=== PATIENT | male | born 1960 | race African-American/Black ===

== ENCOUNTER 2017-03-09 23:53 | Emergency (ER) | payer MEDICAID ==
[~2017-03-09] VITALS: Ht 170.2 cm; Wt 63.5 kg
[2017-03-10 00:56] LABS: Urine Bilirubin Negative (Negative); Urine Blood Negative /uL (Negative); Urine Color Yellow (Yellow); Urine Glucose Normal (Normal); Urine Ketone Negative (Negative); Urine Nitrite Negative (Negative); Urine RBC <1 /hpf (0 - 3); Urine Urobilinogen Normal (Negative)
[2017-03-10 00:59] LABS: Basophils # (auto) 0.1 uL; Basophils % (auto) 0.7 % (0.0-2.0); Eosinophils # (auto) 0 uL; Eosinophils % (auto) 0.1 % (0.0-7.0); Hematocrit 40.5 % (41.0-53.0); Hemoglobin 13.5 g/dL (13.5-17.5); Lymphocytes # (auto) 1.2 uL; Lymphocytes % (auto) 13.9 % (10.0-50.0); Mean Corpuscular Hgb Conc. 33.3 g/dL (32.0-36.0); Mean Corpuscular Volume 87.2 fL (80.0-100.0); Mean Platelet Volume 9.3 fL (6.9-10.8); Monocytes # (auto) 0.4 uL; Neutrophils # (auto) 7.1 uL; Neutrophils % (auto) 80.3 % (37.0-80.0); Nucleated Red Blood Cells % 0.1 %; Platelet Count (auto) 177 10^3/uL (140-450); Red Cell Distribution Width 13.3 % (11.8-14.3); White Blood Cell 8.9 10^3/uL (4.4-10.8)
[2017-03-10 01:25] LABS: Albumin 3.8 g/dL (3.4-5.0); BUN/Creatinine Ratio 18.5; Calcium 9.1 mg/dL (8.5-10.1); Magnesium 2.1 mg/dL (1.6-2.6); Potassium 3.1 mmol/L (3.5-5.1)
[2017-03-10 01:29] LABS: B-Type Natriuretic Peptide 78.3 pg/mL (0-100); Temperature: 21.5 C (20.0-25.0)
[2017-03-10 01:30] LABS: Bilirubin, Total 0.3 mg/dL (0.2-1.0); Total Protein 7.3 g/dL (6.4-8.2)
[2017-03-10 02:05] VITALS: BP 169/92
[2017-03-10] MEDS: cloNIDine HCL 0.1 MG TAB PO ONE (02:26)
== END 2017-03-10 04:18 | disposition left against medical advice (07) ==
LOC: ER 03-10 00:01
DX: I44.7 Left bundle-branch block, unspecified (principal); R79.89 Other specified abnormal findings of blood chemistry; R06.02 Shortness of breath
CPT/HCPCS: 36415; 71010; 80053; 80307; 81001; 83735; 83880; 84484; 85025; 93005

== ENCOUNTER 2018-08-17 16:50 | Emergency (ER) | payer MEDICAID, OTHER ==
[~2018-08-17] VITALS: Ht 170.2 cm; Wt 63.5 kg
[2018-08-17 17:00] VITALS: BP 160/87
== END 2018-08-17 18:37 | disposition left against medical advice (07) ==
LOC: ER 16:55
DX: S71.152A Open bite, left thigh, initial encounter (principal); Z53.21 Procedure and treatment not carried out due to patient leaving prior to being seen by health care provider; W54.0XXA Bitten by dog, initial encounter; Y93.9 Activity, unspecified; Y92.89 Other specified places as the place of occurrence of the external cause; Y99.8 Other external cause status

== ENCOUNTER 2018-08-18 11:12 | Emergency (ER) | payer MEDICAID ==
[~2018-08-18] VITALS: Ht 170.2 cm; Wt 63.5 kg
[2018-08-18 14:04] VITALS: BP 148/100
[2018-08-18] MEDS ORDERED: BACITRACIN TOP OINT 1 UD PKG TOP ONE (14:45)
[2018-08-18] MEDS ORDERED: TETANUS-DIPTH-ACEL PERTUSSIS 0.5ML SYRG IM ONE (15:00)
== END 2018-08-18 14:58 | disposition home or self-care (01) ==
LOC: ER 11:18
DX: S71.152A Open bite, left thigh, initial encounter (principal); W54.0XXA Bitten by dog, initial encounter; Y93.89 Activity, other specified; Y99.8 Other external cause status; Y92.89 Other specified places as the place of occurrence of the external cause
CPT/HCPCS: 90471; 90715